=== PATIENT | female | born 1940 | race Caucasian/White ===

== ENCOUNTER → 2018-08-04 | Outpatient (CLI) | payer OTHER ==
[~2018-08-04] MED LIST: ALAVERT10 MG; AMITRIPTYLINE H25 M2; ANASPAZ0.125 MG SUBLING; ASPIR 8181 MG PO; CIPRO500 MG PO; MACROBID 100 M100 M1 PO; MELATONIN3 MG PO; NEURONTIN 300300 M1 PO; NEURONTIN 400400 M1; SINGULAIR 10 MG10 M1; SINGULAIR 10 MG10 M1 PO; XANAX 0.5 MG0.5 MG PO
[2018-08-04 17:12] LABS: CREATININE 0.8 mg/dL (0.6-1.0)
== END ==
LOC: LABMALL 16:34 → CAT 16:34
PROVIDERS: Nurse Practitioner
DX: G45.9 Transient cerebral ischemic attack, unspecified (principal); I63.9 Cerebral infarction, unspecified; H53.8 Other visual disturbances; R41.3 Other amnesia